=== PATIENT | male | born 1955 | race African-American/Black ===

== ENCOUNTER 2018-06-27 17:38 | Inpatient (IN) ==
[2018-06-27 18:58] LABS: Alanine Aminotransferase 22 U/L (16-61); Albumin 2.8 G/DL (3.4-5.0); Alkaline Phosphatase 84 U/L (45-117); Aspartate Amino Transferase 20 U/L (0-37); Bilirubin,Total < 0.39 MG/DL (0.2-1.0); Blood Urea Nitrogen 14 MG/DL (7-18); Calcium 8.4 MG/DL (8.5-10.1); Glucose 97 MG/DL (74-106); Osmolality,Calculated 277.5 MOS/KG (273-304); Potassium 4.1 MMOL/L (3.5-5.1); Sodium 139 MMOL/L (136-145)
[2018-06-27 19:43] LABS: Basophils % 0.9 % (0.0-0.8); Eosinophils # 0.1 10*3/uL (0.0-0.87); Eosinophils % 2.8 % (0.00-10.9); Hematocrit 23.1 VOL% (42.0-52.0); Immature Granulocytes % 0.4 %; Immature Granulocytes Absolute 0.02 #; Lymphocytes # 1.3 10*3/uL (1.4-4.0); Lymphocytes % 28.3 % (21.2-54.2); Mean Corpuscular HGB Conc 25.1 GM/DL (32-36); Mean Corpuscular Hemoglobin 16 PG (27-34); Mean Corpuscular Volume 62.4 FL (87-102); Monocytes # 0.4 10*3/uL (0.11-0.8); Monocytes % 9.2 % (1.7-12.7); Neutrophils # 2.7 10*3/uL (1.4-7.4); Neutrophils % 58.4 % (38.7-73.9); Platelet Count 221 T/CUMM (130-400); Red Cell Distribution Width 24.8 % (9.3-17.3); White Blood Count 4.6 T/CUMM (4-12)
[2018-06-27 19:53] LABS: Hemoglobin 5.8 GM/DL (14.0-18.0)
[2018-06-27 20:04] LABS: Hypochromasia 2+
[2018-06-27 20:05] LABS: Ovalocytes Few; Stomatocytes Slight; Target Cells 1+
[2018-06-27 20:06] LABS: Anisocytosis 2+; Polychromasia Slight
[2018-06-27 20:08] LABS: Poikilocytosis 1+; Tear Drop Cells Slight
[2018-06-27 20:09] LABS: Platelet Estimate Normal
[2018-06-27] MEDS ORDERED: SODIUM CHLORIDE 0.9% 1,000 ML IV PRN (21:20)
[2018-06-27] MEDS ORDERED: FUROSEMIDE 20 MG/2 ML VIAL IV PRN (21:20)
[2018-06-27] MEDS ORDERED: DOCUSATE SODIUM 100 MG CAPSULE PO PRN (21:25)
[2018-06-27] MEDS ORDERED: ACETAMINOPHEN 325 MG TABLET PO PRN (21:25)
[2018-06-27] MEDS ORDERED: ONDANSETRON 4 MG/2 ML VIAL IV PRN (21:25)
[2018-06-27] MEDS: CEFTAROLINE 600 MG in SODIUM CHLORIDE 0.9% 100 ML IV SCH (22:32)
[2018-06-28] MEDS: ENOXAPARIN 40 MG/0.4 ML SYRINGE SUBCUT SCH ×2 (00:17→20:45)
[2018-06-28 10:49] LABS: % Iron Saturation 36.8 % (18-50); Ferritin 5.5 ng/ml (26-388)
[2018-06-28 10:54] LABS: Calcium 7.9 MG/DL (8.5-10.1); Osmolality,Calculated 278.5 MOS/KG (273-304); Potassium 4.1 MMOL/L (3.5-5.1); Thyroid Stimulating Hormone 1.8 uIU/ml (0.358-3.74); Vitamin B12 438 PG/ML (211-911)
[2018-06-28] MEDS: CEFTAROLINE 600 MG in SODIUM CHLORIDE 0.9% 100 ML IV SCH ×2 (10:54→22:42)
[2018-06-28 10:56] LABS: Hematocrit 29.3 VOL% (42.0-52.0); Hemoglobin 8.2 GM/DL (14.0-18.0); Mean Corpuscular Hemoglobin 19 PG (27-34); Mean Corpuscular Volume 68.1 FL (87-102); NRBC # 0.04 10*3/uL; Platelet Count 213 T/CUMM (130-400); Red Cell Distribution Width 28.7 % (9.3-17.3); White Blood Count 6.4 T/CUMM (4-12)
[2018-06-28 10:59] LABS: Hematocrit 29.5 VOL% (42.0-52.0); Hemoglobin 8.2 GM/DL (14.0-18.0)
[2018-06-28 11:34] LABS: Anisocytosis 1+; Platelet Estimate Normal; Poikilocytosis 1+; Target Cells Few
[2018-06-28 11:57] LABS: Sedimentation Rate-Westergren 40 MM/HR (0-20)
[2018-06-28] MEDS: PANTOPRAZOLE 40 MG TABLET PO SCH (13:02)
[2018-06-28] MEDS ORDERED: ALBUTEROL/IPRATROPIUM 3 ML NEB RESP TX PRN (17:20)
[2018-06-28] MEDS ORDERED: FUROSEMIDE 20 MG/2 ML VIAL IV ONE (17:24)
[2018-06-28 19:11] LABS: Apearance,Urine CLEAR (Clear); Bilirubin,Urine Negative (Negative); Blood, Urine Negative (Negative); Glucose,Urine (UA) 50 mg/dL (Negative); Ketones,Urine Negative (Negative); Nitrite,Urine Negative (Negative); Protein,Urine Negative; RBC,Urine 2 /HPF (0-4); Urine Color Yellow (Yellow); Urine Specific Gravity 1.041 (1.001-1.035); Urine Urobilinogen < 2.0 EU/DL (0.2-1.0); WBC,Urine 1 /HPF (0-6)
[2018-06-29 05:23] LABS: Calcium 7.9 MG/DL (8.5-10.1); Osmolality,Calculated 274.7 MOS/KG (273-304); Potassium 3.6 MMOL/L (3.5-5.1)
[2018-06-29 05:39] LABS: Basophils % 0.6 % (0.0-0.8); Eosinophils # 0.2 10*3/uL (0.0-0.87); Eosinophils % 2.7 % (0.00-10.9); Immature Granulocytes % 0.6 %; Immature Granulocytes Absolute 0.04 #; Lymphocytes # 1.4 10*3/uL (1.4-4.0); Lymphocytes % 19.5 % (21.2-54.2); Mean Corpuscular HGB Conc 28.2 GM/DL (32-36); Mean Corpuscular Hemoglobin 19 PG (27-34); Mean Corpuscular Volume 67.4 FL (87-102); Monocytes # 0.8 10*3/uL (0.11-0.8); Monocytes % 11.7 % (1.7-12.7); NRBC # 0.03 10*3/uL; Neutrophils # 4.6 10*3/uL (1.4-7.4); Neutrophils % 64.9 % (38.7-73.9); Platelet Count 201 T/CUMM (130-400); Red Blood Count 4.36 MC/CUMM (3.8-5.5); Red Cell Distribution Width 28.9 % (9.3-17.3); White Blood Count 7.1 T/CUMM (4-12)
[2018-06-29 05:42] LABS: Hemoglobin 8.3 GM/DL (14.0-18.0)
[2018-06-29] MEDS: PANTOPRAZOLE 40 MG TABLET PO SCH (09:04)
[2018-06-29] MEDS: CEFTAROLINE 600 MG in SODIUM CHLORIDE 0.9% 100 ML IV SCH ×2 (11:27→22:38)
[2018-06-29] MEDS: FUROSEMIDE 20 MG/2 ML VIAL IV SCH (16:58)
[2018-06-29] MEDS: ENOXAPARIN 40 MG/0.4 ML SYRINGE SUBCUT SCH (22:39)
[2018-06-30] MEDS: PANTOPRAZOLE 40 MG TABLET PO SCH (09:30)
[2018-06-30] MEDS: FUROSEMIDE 20 MG/2 ML VIAL IV SCH ×2 (09:31→16:19)
[2018-06-30] MEDS: CEFTAROLINE 600 MG in SODIUM CHLORIDE 0.9% 100 ML IV SCH ×2 (09:41→23:01)
[2018-06-30 09:59] LABS: Hemoglobin A1 (Alkaline) 97.8 % (96.5-98.5); Hemoglobin A2 (Alkaline) 2.2 % (1.5-3.5)
[2018-06-30] MEDS: SKIN HEALING OINT (AQUAPHOR) 50 GM TUBE TOP SCH (16:28)
[2018-06-30] MEDS: ENOXAPARIN 40 MG/0.4 ML SYRINGE SUBCUT SCH (21:11)
[2018-07-01 06:35] LABS: Basophils # 0.1 10*3/uL (0.0-0.2); Basophils % 1.2 % (0.0-0.8); Eosinophils # 0.3 10*3/uL (0.0-0.87); Eosinophils % 5.6 % (0.00-10.9); Hematocrit 34.3 VOL% (42.0-52.0); Immature Granulocytes Absolute 0.06 #; Lymphocytes # 1.2 10*3/uL (1.4-4.0); Lymphocytes % 20.2 % (21.2-54.2); Mean Corpuscular HGB Conc 27.4 GM/DL (32-36); Mean Corpuscular Hemoglobin 19 PG (27-34); Mean Corpuscular Volume 69.3 FL (87-102); Monocytes # 0.8 10*3/uL (0.11-0.8); Monocytes % 13.3 % (1.7-12.7); Neutrophils # 3.4 10*3/uL (1.4-7.4); Neutrophils % 58.7 % (38.7-73.9); Platelet Count 199 T/CUMM (130-400); Red Blood Count 4.95 MC/CUMM (3.8-5.5); Red Cell Distribution Width 30.9 % (9.3-17.3); White Blood Count 5.9 T/CUMM (4-12)
[2018-07-01 06:41] LABS: Hemoglobin 9.5 GM/DL (14.0-18.0)
[2018-07-01 06:51] LABS: Hypochromasia 2+; Microcytosis 1+; Spherocytes Few
[2018-07-01 06:52] LABS: Anisocytosis 1+; Polychromasia Slight; Target Cells Few
[2018-07-01 06:53] LABS: Platelet Estimate Adequate
[2018-07-01] MEDS: FUROSEMIDE 20 MG/2 ML VIAL IV SCH ×2 (09:12→16:34)
[2018-07-01] MEDS: PANTOPRAZOLE 40 MG TABLET PO SCH (09:12)
[2018-07-01] MEDS: SKIN HEALING OINT (AQUAPHOR) 50 GM TUBE TOP SCH (09:20)
[2018-07-01] MEDS: CEFTAROLINE 600 MG in SODIUM CHLORIDE 0.9% 100 ML IV SCH ×2 (10:10→23:20)
[2018-07-01] MEDS: ENOXAPARIN 40 MG/0.4 ML SYRINGE SUBCUT SCH (21:13)
[2018-07-02] MEDS: PANTOPRAZOLE 40 MG TABLET PO SCH (08:50)
[2018-07-02] MEDS: FUROSEMIDE 20 MG/2 ML VIAL IV SCH (08:50)
[2018-07-02] MEDS: SKIN HEALING OINT (AQUAPHOR) 50 GM TUBE TOP SCH (08:51)
[2018-07-02] MEDS: CEFTAROLINE 600 MG in SODIUM CHLORIDE 0.9% 100 ML IV SCH (09:46)
[2018-07-02 11:07] VITALS: BP 142/81
== END 2018-07-02 12:03 | DRG 603 ==
LOC: N.EDINP 17:38 → N.ED 17:38 → SUATTDRO 21:06 → N.3W 21:44
PROVIDERS: ADMIT Internal Medicine; ATTEND Internal Medicine Cardiovascular Disease